=== PATIENT | female | born 1950 | race Caucasian/White ===

== ENCOUNTER 2021-04-06 04:57 | Emergency (ER) | payer MEDICARE, OTHER ==
[2021-04-06 07:34] LABS: BASOPHIL 0.3 % (0-2); EOSINOPHIL 1.1 % (0-7); HGB 12.4 g/dl (12.5-16.0); LYMPHOCYTE 11.8 % (15-48); MCH 28.1 pg (25.0-31.0); MCHC 31.8 g/dL (32.0-36.0); MCV 88.2 fL (78.0-100.0); MONOCYTE 9.8 % (0-12); MPV 11.4 fL (6.0-9.5); NEUTROPHIL 76.7 % (41-80); NRBC 0; PLT 151 K/uL (150-400); RBC 4.42 M/uL (4.20-5.40); RDW 14.2 % (11.5-14.0)
[2021-04-06 07:46] LABS: ALBUMIN 3.8 g/dL (3.4-5.0); BILIRUBIN - TOTAL 1.4 mg/dL (0.2-1.0); BUN/CREAT RATIO (CALC) 26.4 RATIO; CREATININE 0.91 mg/dL (0.51-0.95); GLOBULIN (CALCULATION) 4.1 g/dL; POTASSIUM 4.1 mmol/L (3.5-5.1); TOTAL PROTEIN 7.9 g/dL (6.4-8.2)
[2021-04-06 08:07] LABS: LACTIC ACID 1.9 mmol/L (0.4-1.9)
[2021-04-06 09:06] LABS: BILIRUBIN 1+ mg/dL (NEGATIVE); BLOOD 3+ Ery/uL (NEGATIVE); CLARITY HAZY (CLEAR); COLOR YELLOW (YELLOW); GLUCOSE (U) NORMAL (NORMAL); LEUKOCYTES 2+ Leu/uL (NEGATIVE); NITRITE NEGATIVE (NEGATIVE); PROTEIN TRACE (LOW) mg/dL (NEGATIVE); pH 5.5 (5.0-9.0)
[2021-04-06 09:20] LABS: BACTERIA 4+; RENAL EPITHELIAL CELLS RARE; URINARY WBC 20-50
[2021-04-06 09:21] LABS: AMORPHOUS URATES CRYSTALS TRACE
== END 2021-04-06 10:41 | disposition home or self-care (01) ==
LOC: FER 04:57
PROVIDERS: Emergency Medicine
DX: E86.0 Dehydration (principal); I95.1 Orthostatic hypotension; E11.9 Type 2 diabetes mellitus without complications; I10 Essential (primary) hypertension; J45.909 Unspecified asthma, uncomplicated
CPT/HCPCS: 36415; 71045; 80053; 81001; 83605; 84484; 85025; 87076; 87088; 87186; 93005; J7030

== ENCOUNTER 2021-10-14 11:15 | Inpatient (IN) | payer MEDICARE, OTHER ==
[~2021-10-14] VITALS: Ht 167.6 cm; Wt 73.5 kg
[2021-10-14 11:36] LABS: BASOPHIL 0.3 % (0-2); EOSINOPHIL 0 % (0-7); HCT 43.8 % (37.0-47.0); HGB 14.4 g/dl (12.5-16.0); LYMPHOCYTE 10.7 % (15-48); MCH 28.1 pg (25.0-31.0); MCHC 32.9 g/dL (32.0-36.0); MCV 85.4 fL (78.0-100.0); MONOCYTE 11.6 % (0-12); NRBC 0; PLT 388 K/uL (150-400); RBC 5.13 M/uL (4.20-5.40); RDW 15.7 % (11.5-14.0); WBC 23.7 K/uL (4.0-10.5)
[2021-10-14 12:23] LABS: ALBUMIN 4.4 g/dL (3.4-5.0); BUN/CREAT RATIO (CALC) 32.5 RATIO; CREATININE 2.43 mg/dL (0.51-0.95); GLOBULIN (CALCULATION) 3.8 g/dL; MAGNESIUM 1.5 mg/dL (1.8-2.4); POTASSIUM 4.3 mmol/L (3.5-5.1); TOTAL PROTEIN 8.2 g/dL (6.4-8.2)
[2021-10-14 13:36] LABS: BILIRUBIN 1+ mg/dL (NEGATIVE); BLOOD 2+ Ery/uL (NEGATIVE); CLARITY CLOUDY (CLEAR); COLOR YELLOW (YELLOW); GLUCOSE (U) NORMAL (NORMAL); LEUKOCYTES NEGATIVE Leu/uL (NEGATIVE); NITRITE NEGATIVE (NEGATIVE); PROTEIN NEGATIVE (NEGATIVE); SPECIFIC GRAVITY >=1.030 (1.001-1.030); UROBILINOGEN 0.2 mg/dL (0.2-1.0)
[2021-10-14 13:47] LABS: BACTERIA 3+; URINARY RBC 20-50
[2021-10-14 13:48] LABS: CALCIUM OXALATE CRYSTALS TRACE
[2021-10-14 16:18] LABS: LACTIC ACID 5.8 mmol/L (0.4-1.9)
[2021-10-14] MEDS ORDERED: LISINOPRIL40 MG PO (16:47)
[2021-10-14] MEDS ORDERED: TRELEGY ELLIPT1 EACH INH (16:48)
[2021-10-14] MEDS ORDERED: METFORMIN HCL500 M1 PO (16:49)
[2021-10-14] MEDS ORDERED: AMLODIPINE BESYL5 MG PO (16:50)
[2021-10-14] MEDS ORDERED: OXYBUTYNIN CHLO10 MG PO (16:51)
[2021-10-14] MEDS ORDERED: DICLOFENAC SODI75 MG PO (16:51)
[2021-10-14] MEDS ORDERED: ATORVASTATIN CA40 MG PO (16:52)
[2021-10-14] MEDS ORDERED: VENTOLIN HFA IN18 GM INH (16:52)
[2021-10-14] MEDS ORDERED: OMEPRAZOLE40 MG PO (16:52)
[2021-10-14] MEDS ORDERED: FLUOXETINE HCL20 MG PO (16:53)
[2021-10-14] MEDS ORDERED: MONTELUKAST SOD10 MG PO (16:53)
[2021-10-14] MEDS ORDERED: FLUTICASONE PRO16 GM (16:55)
[2021-10-14] MEDS ORDERED: LOVAZA1 GM PO (16:56)
[2021-10-14] MEDS ORDERED: IRON18 MG PO (16:57)
[2021-10-14] MEDS ORDERED: VITAMIN D3125 MC1 PO (16:58)
[2021-10-14] MEDS ORDERED: ASPIRIN81 MG PO (16:59)
[2021-10-14] MEDS ORDERED: FOLIC ACID1 M1 PO (16:59)
[2021-10-14] MEDS ORDERED: B12 ACTIVE1000 MCG PO (17:00)
[2021-10-14 20:33] LABS: INR 1.17 (0.9-1.2); PROTHROMBIN TIME 14.3 SECONDS (11.8-13.4)
[2021-10-15 06:41] LABS: BASOPHIL 0.5 % (0-2); EOSINOPHIL 0.4 % (0-7); HCT 37.5 % (37.0-47.0); HGB 12.3 g/dl (12.5-16.0); MCHC 32.8 g/dL (32.0-36.0); MCV 85.2 fL (78.0-100.0); MPV 10.4 fL (6.0-9.5); NEUTROPHIL 57.1 % (41-80); NRBC 0; PLT 259 K/uL (150-400); RDW 15.5 % (11.5-14.0)
[2021-10-15 06:49] LABS: MONOCYTE 20.7 % (0-12)
[2021-10-15 07:09] LABS: BUN/CREAT RATIO (CALC) 50.7 RATIO; CREATININE 1.48 mg/dL (0.51-0.95); POTASSIUM 3.9 mmol/L (3.5-5.1)
[2021-10-15 07:16] LABS: MAGNESIUM 2.4 mg/dL (1.8-2.4)
--- NOTE | 2021-10-15 11:01 | NUR ---
MET WITH PT CONCERNING D/C NEEDS. PT. STATED THAT SHE LIVES ALONE AND IS INDEPENDENT. SHE DOES HAVE FRIENDS WHO ARE A GREAT HELP TO HER. SHE UTILIZES [facility] WHEN NECESSARY. PT IS UNSURE IF SHE WILL HAVE SURGERY. REGARDLESS SHE SAYS THAT SHE HAS FRIENDS TO HELP HER AND DECLINES HH SERVICES.
--- NOTE | 2021-10-15 13:34 | NUR ---
@[address] APPIAH TO ADVANCE NGT 10CM MORE. PT TOLERATED WELL.
[2021-10-16 05:45] LABS: BASOPHIL 0.5 % (0-2); EOSINOPHIL 0.8 % (0-7); HCT 34.6 % (37.0-47.0); HGB 10.9 g/dl (12.5-16.0); LYMPHOCYTE 29.9 % (15-48); MCH 27.7 pg (25.0-31.0); MCHC 31.5 g/dL (32.0-36.0); MONOCYTE 17.1 % (0-12); MPV 10.5 fL (6.0-9.5); NEUTROPHIL 51.1 % (41-80); NRBC 0; PLT 227 K/uL (150-400); RBC 3.93 M/uL (4.20-5.40); RDW 15.5 % (11.5-14.0); WBC 6.4 K/uL (4.0-10.5)
[2021-10-16 06:31] LABS: CREATININE 2.26 mg/dL (0.51-0.95); MAGNESIUM 2.4 mg/dL (1.8-2.4); POTASSIUM 3.9 mmol/L (3.5-5.1)
[2021-10-17 08:39] LABS: BASOPHIL 0.9 % (0-2); EOSINOPHIL 2.9 % (0-7); HCT 30.9 % (37.0-47.0); HGB 9.9 g/dl (12.5-16.0); LYMPHOCYTE 39.4 % (15-48); MCH 28.2 pg (25.0-31.0); MONOCYTE 9.2 % (0-12); MPV 9.9 fL (6.0-9.5); NEUTROPHIL 46.3 % (41-80); NRBC 0; PLT 203 K/uL (150-400); RBC 3.51 M/uL (4.20-5.40); RDW 15.3 % (11.5-14.0)
[2021-10-17 10:13] LABS: CREATININE 0.93 mg/dL (0.51-0.95); PHOSPHORUS 1.7 mg/dL (2.6-4.7); POTASSIUM 3.7 mmol/L (3.5-5.1)
[2021-10-17 10:22] LABS: MAGNESIUM 1.7 mg/dL (1.8-2.4)
[2021-10-18 06:13] LABS: BASOPHIL 0.8 % (0-2); HCT 32.2 % (37.0-47.0); HGB 10.4 g/dl (12.5-16.0); LYMPHOCYTE 29.6 % (15-48); MCH 27.7 pg (25.0-31.0); MCHC 32.3 g/dL (32.0-36.0); MCV 85.9 fL (78.0-100.0); MONOCYTE 5.9 % (0-12); NEUTROPHIL 57.1 % (41-80); NRBC 0; PLT 228 K/uL (150-400); RBC 3.75 M/uL (4.20-5.40); RDW 14.4 % (11.5-14.0); WBC 8.9 K/uL (4.0-10.5)
[2021-10-18 06:34] LABS: CREATININE 0.84 mg/dL (0.51-0.95); MAGNESIUM 1.5 mg/dL (1.8-2.4); POTASSIUM 3.7 mmol/L (3.5-5.1)
[2021-10-19 06:30] LABS: BASOPHIL 0.6 % (0-2); EOSINOPHIL 1.8 % (0-7); HGB 11.4 g/dl (12.5-16.0); MCH 27.9 pg (25.0-31.0); MCHC 32.6 g/dL (32.0-36.0); MCV 85.6 fL (78.0-100.0); MONOCYTE 6.8 % (0-12); MPV 10.3 fL (6.0-9.5); NEUTROPHIL 66.1 % (41-80); NRBC 0; PLT 237 K/uL (150-400); RBC 4.09 M/uL (4.20-5.40); RDW 14.5 % (11.5-14.0); WBC 9.9 K/uL (4.0-10.5)
[2021-10-19 06:58] LABS: BUN/CREAT RATIO (CALC) 14.8 RATIO; CREATININE 0.81 mg/dL (0.51-0.95); MAGNESIUM 1.7 mg/dL (1.8-2.4)
== END 2021-10-19 17:45 | disposition home or self-care (01) | DRG 388 ==
LOC: FER 11:15 → FMS 15:37
PROVIDERS: Emergency Medicine; Student in an Organized Health Care Education/Training Program; ADMIT Internal Medicine
DX: K56.51 Intestinal adhesions [bands], with partial obstruction (principal); R65.11 Systemic inflammatory response syndrome (SIRS) of non-infectious origin with acute organ dysfunction; N17.9 Acute kidney failure, unspecified; E87.2 Acidosis; Z20.822 Contact with and (suspected) exposure to COVID-19; E86.0 Dehydration; J44.9 Chronic obstructive pulmonary disease, unspecified; K74.60 Unspecified cirrhosis of liver; I10 Essential (primary) hypertension; E11.9 Type 2 diabetes mellitus without complications; E78.5 Hyperlipidemia, unspecified; J45.909 Unspecified asthma, uncomplicated; K21.9 Gastro-esophageal reflux disease without esophagitis; F41.9 Anxiety disorder, unspecified; M54.9 Dorsalgia, unspecified; G89.29 Other chronic pain; F17.200 Nicotine dependence, unspecified, uncomplicated; Z90.49 Acquired absence of other specified parts of digestive tract; Z90.710 Acquired absence of both cervix and uterus; Z79.82 Long term (current) use of aspirin; Z79.84 Long term (current) use of oral hypoglycemic drugs; Z79.899 Other long term (current) drug therapy
CPT/HCPCS: 36415; 71250; 74018; 74019; 74250; 80048; 80053; 81001; 82009; 82565; 82962; 83036; 83605; 83615; 83690; 83735; 84100; 84145; 85025; 85610; 87040; C9113; J0360; J1170; J2060; J2405; J2543; J2550; J3475; J3480; J7030; J7050; U0002

== ENCOUNTER 2021-10-22 21:49 | Inpatient (IN) | payer MEDICARE, OTHER ==
[~2021-10-22] VITALS: Ht 165 cm; Wt 74.0 kg
[~2021-10-22 21:49] MED LIST: AMLODIPINE BESYL5 MG PO; ASPIRIN81 MG PO; ATORVASTATIN CA40 MG PO; B12 ACTIVE1000 MCG PO; DICLOFENAC SODI75 MG PO; FLUOXETINE HCL20 MG PO; FLUTICASONE PRO16 GM; FOLIC ACID1 M1 PO; IRON18 MG PO; LISINOPRIL40 MG PO; LOVAZA1 GM PO; METFORMIN HCL500 M1 PO; MONTELUKAST SOD10 MG PO; OMEPRAZOLE40 MG PO; OXYBUTYNIN CHLO10 MG PO; TRELEGY ELLIPT1 EACH INH; VENTOLIN HFA IN18 GM INH; VITAMIN D3125 MC1 PO
[2021-10-22 22:39] LABS: BASOPHIL 0.9 % (0-2); EOSINOPHIL 3.3 % (0-7); HCT 36.8 % (37.0-47.0); HGB 12.2 g/dl (12.5-16.0); LYMPHOCYTE 19.9 % (15-48); MCH 28.2 pg (25.0-31.0); MCHC 33.2 g/dL (32.0-36.0); MONOCYTE 5.3 % (0-12); MPV 10.8 fL (6.0-9.5); NEUTROPHIL 66.6 % (41-80); NRBC 0; PLT 264 K/uL (150-400); RBC 4.33 M/uL (4.20-5.40); WBC 10.5 K/uL (4.0-10.5)
[2021-10-22 22:48] LABS: LACTIC ACID 3.2 mmol/L (0.4-1.9)
[2021-10-22 22:59] LABS: ALBUMIN 3.6 g/dL (3.4-5.0); ALKALINE PHOSHATASE 60 U/L (46-116); ALT 34 U/L (14-59); AST 28 U/L (15-37); BILIRUBIN - TOTAL 0.5 mg/dL (0.2-1.0); BUN 16 mg/dL (7-18); BUN/CREAT RATIO (CALC) 18.8 RATIO; C-REACTIVE PROTEIN <0.20 mg/dL (<=0.90); CHLORIDE 104 mmol/L (98-107); CO2 (BICARBONATE) 19 mmol/L (21-32); CREATININE 0.85 mg/dL (0.51-0.95); GLUCOSE 160 mg/dL (74-106); POTASSIUM 3.5 mmol/L (3.5-5.1); TOTAL PROTEIN 7.6 g/dL (6.4-8.2)
[2021-10-23 08:44] LABS: HCT 29.5 % (37.0-47.0); HGB 9.8 g/dl (12.5-16.0); MCH 28.2 pg (25.0-31.0); MCHC 33.2 g/dL (32.0-36.0); RBC 3.47 M/uL (4.20-5.40); RDW 15.2 % (11.5-14.0); WBC 6.9 K/uL (4.0-10.5)
[2021-10-23 08:55] LABS: INR 1.13 (0.9-1.2); PROTHROMBIN TIME 13.9 SECONDS (11.8-13.4); PTT 24.5 SECONDS (24.4-34.7)
[2021-10-23 09:03] LABS: BUN/CREAT RATIO (CALC) 16.9 RATIO; CREATININE 0.83 mg/dL (0.51-0.95); PHOSPHORUS 2.9 mg/dL (2.6-4.7); POTASSIUM 3.3 mmol/L (3.5-5.1)
[2021-10-23 09:04] LABS: MAGNESIUM 1.1 mg/dL (1.8-2.4)
[2021-10-23 18:40] LABS: BILIRUBIN NEGATIVE (NEGATIVE); BLOOD TRACE-INTACT Ery/uL (NEGATIVE); CLARITY CLEAR (CLEAR); COLOR YELLOW (YELLOW); GLUCOSE (U) NORMAL (NORMAL); LEUKOCYTES NEGATIVE Leu/uL (NEGATIVE); NITRITE NEGATIVE (NEGATIVE); PROTEIN NEGATIVE (NEGATIVE); SPECIFIC GRAVITY 1.025 (1.001-1.030); UROBILINOGEN 0.2 mg/dL (0.2-1.0)
[2021-10-23 18:48] LABS: AMORPHOUS URATES CRYSTALS TRACE; BACTERIA TRACE; URIC ACID CRYSTALS MODERATE
[2021-10-24 07:02] LABS: BASOPHIL 0.4 % (0-2); HGB 8.8 g/dl (12.5-16.0); MCH 27.9 pg (25.0-31.0); MCHC 32.6 g/dL (32.0-36.0); MCV 85.7 fL (78.0-100.0); MONOCYTE 6.9 % (0-12); MPV 10.5 fL (6.0-9.5); NEUTROPHIL 65.2 % (41-80); NRBC 0; PLT 166 K/uL (150-400); RBC 3.15 M/uL (4.20-5.40); RDW 15.5 % (11.5-14.0)
[2021-10-24 07:20] LABS: CREATININE 0.9 mg/dL (0.51-0.95); PHOSPHORUS 3.3 mg/dL (2.6-4.7); POTASSIUM 4.2 mmol/L (3.5-5.1)
[2021-10-24 07:25] LABS: MAGNESIUM 1.9 mg/dL (1.8-2.4)
--- NOTE | 2021-10-24 11:02 | NUR ---
MET WITH PT. SHE REPORTS THAT SHE IS INDEPENDENT AT HOME. SHE USES [facility] IF SHE DOESN'T WANT TO GO TO THE STORE. SHE HAS FRIENDS AND FAMILY WHO WILL ASSIST HER. PT. DOES NOT REQUIRE ANY DME. PT. DECLINED SERVICES.
== END 2021-10-24 12:57 | disposition home or self-care (01) | DRG 336 ==
LOC: FER 21:49 → FMS 10-23 00:51
PROVIDERS: Emergency Medicine Emergency Medical Services; Internal Medicine; Nurse Practitioner; Student in an Organized Health Care Education/Training Program; ADMIT Internal Medicine
PROC: 0DNU4ZZ Release Omentum, Percutaneous Endoscopic Approach (ICD-10-PCS; 2021-10-23)
PROC: 0DNW4ZZ Release Peritoneum, Percutaneous Endoscopic Approach (ICD-10-PCS; 2021-10-23)
PROC: 0DTJ4ZZ Resection of Appendix, Percutaneous Endoscopic Approach (ICD-10-PCS; 2021-10-23)
PROC: 0DN84ZZ Release Small Intestine, Percutaneous Endoscopic Approach (ICD-10-PCS; principal; 2021-10-23 13:00)
DX: K36 Other appendicitis (principal); K56.7 Ileus, unspecified; Z20.822 Contact with and (suspected) exposure to COVID-19; I10 Essential (primary) hypertension; K74.60 Unspecified cirrhosis of liver; E11.9 Type 2 diabetes mellitus without complications; E78.5 Hyperlipidemia, unspecified; F41.9 Anxiety disorder, unspecified; K21.9 Gastro-esophageal reflux disease without esophagitis; J45.909 Unspecified asthma, uncomplicated; Z79.84 Long term (current) use of oral hypoglycemic drugs; Z79.82 Long term (current) use of aspirin; Z79.899 Other long term (current) drug therapy; Z88.1 Allergy status to other antibiotic agents; Z90.49 Acquired absence of other specified parts of digestive tract; Z90.710 Acquired absence of both cervix and uterus; Z98.41 Cataract extraction status, right eye; Z98.42 Cataract extraction status, left eye
CPT/HCPCS: 36415; 71045; 74018; 80048; 80053; 81001; 83036; 83605; 83735; 84100; 84145; 85025; 85610; 85730; 86140; 93005; 94010; 94640; C9113; J0360; J1170; J1644; J1650; J2405; J2543; J2704; J3010; J3475; J3480; J7030; J7120; Q9967; U0002